=== PATIENT | male | born 1970 | race Caucasian/White ===

== ENCOUNTER 2023-08-23 07:00 | Day surgery (SDC) | payer OTHER, SELFPAY ==
[2023-08-23 07:16] VITALS: BMI 33.5
--- NOTE | 2023-08-23 09:37 | ITS.CL.CARDI ---
Novelty Chain Maker - Cardioversion
Cardioversion
Procedure Report:
Procedure: GISEL-guided electrical cardioversion
Pre-operative diagnosis: Persistent atrial fibrillation
Post-operative diagnosis: Persistent atrial fibrillation status post DC cardioversion to sinus rhythm
Anesthesia: MAC
Attending Physician: Guy Finn MD
Procedure Description: The patient was brought to the electrophysiology laboratory in the fasting state. Informed consent was obtained from the patient prior to the start of the procedure. Adherence to anticoagulation was confirmed. Electrodes were
placed on the patient and connected to an external defibrillator. Monitoring of blood pressure, ECG tracings, and pulse oximetry was initiated. The pads were applied to the patient in the anterior and posterior positions. The patient was sedated by
the anesthesiologist. A GISEL (reported separately) was performed prior to the cardioversion. No left atrial or left atrial appendage thrombus was seen. After the GISEL probe was removed, a 200 joule and subsequent 360 joule biphasic synchronized shock
was delivered to the patient under MAC anesthesia. Sinus rhythm was successfully restored. The patient recovered uneventfully from MAC anesthesia. There were no immediate post-procedure complications. The patient left the lab in good condition. The
attending physician was present throughout the entire procedure.
Impression: Successful GISEL-guided direct current cardioversion with roman catholic of sinus rhythm after a 200 joule and subsequent 360 joule biphasic synchronized shock.
== END 2023-08-23 09:55 | disposition home or self-care (01) ==
LOC: CATH 07:00
PROVIDERS: ATTENDING PHYSICIAN Nuclear Medicine Nuclear Cardiology; FAMILY PHYSICIAN Family Medicine; OTHER PHYSICIAN Internal Medicine Cardiovascular Disease
DX: I48.19 Other persistent atrial fibrillation (principal); I08.1 Rheumatic disorders of both mitral and tricuspid valves; Z79.01 Long term (current) use of anticoagulants
CPT/HCPCS: 93312; 93320; 93325; 92960; 93005

== ENCOUNTER 2023-10-09 06:07 | Day surgery (SDC) | payer OTHER, SELFPAY ==
--- NOTE | 2023-09-25 08:23 | HPS.HSE ---
Family Physician
-
Family Physician: NOT KNOW UNKNOWN - PT DOES
Chief Complaint
-
Paroxysmal atrial fibrillation.
History of Present Illness
The patient is a 52 year old male presenting today for paroxysmal atrial fibrillation. The patient reports a wide variety of symptoms associated with his arrhythmia, which include marked fatigue and dyspnea on exertion. He previously underwent
multiple GISEL-guided cardioversions and pulmonary vein isolation in June 2022 for this diagnosis. He is currently rate controlled without the use of pharmacological therapy. He has been complaint with Eliquis for oral anticoagulation. He notes
that his current symptoms are greatly interfering with his activities of daily living and are overall impacting his quality of life. He is interested in pursuing pulmonary vein isolation again for further arrhythmia management. He denies any current
complaints today such as chest pain and shortness of breath at rest, palpitations, nausea, vomiting, diarrhea, lightheadedness, dizziness, cough, sore throat, or fever.
Medical History
Past Medical History
Past Medical History: Reports Other
Additional Past Medical History:
1. Paroxysmal atrial fibrillation, status post GISEL-guided cardioversion x3 and pulmonary vein isolation 06/2022; oral anticoagulation with Eliquis.
2. First degree AV block.
3. Right lower lobe pulmonary nodule on chest CT 06/2022.
4. Hepatic steatosis.
5. Remote nephrolithiasis.
6. Degenerative disc disease.
7. Mild hyponatremia.
8. Obesity, BMI 33.9.
Past Surgical History: Reports Other
Additional Past Surgical History:
1. Pulmonary vein isolation.
2. GISEL-guided cardioversion x3.
3. [place] teeth extraction.
Social History
Tobacco: Non-smoker
Alcohol: Other (He reports, on average, drinking 5-6 beers twice a week.)
Personal:
Living: With Family (The patient lives in a three-story home with his and three children.)
Family History
Family History: Not pertinent
Allergies / Home Medications
Allergy/Medication List:
Home medications:
1. Zyrtec 10 mg p.o. daily.
2. Eliquis 5 mg p.o. twice a day.
3. Multivitamin 1 tablet p.o. daily.
Allergies: Seasonal. No known drug allergies.
Review of Systems
-
A 12 point ROS was completed and negative except as noted: Yes
Physical Exam
Vital Signs
Blood pressure 127/77. Heart rate 77. Respirations 18. Pulse ox 97% on room air.
Height 5 feet, 11 inches. Weight 110.2 kg. BMI 33.9.
Physical Exam
General: Well Developed, Well Nourished and No Apparent Distress
HEENT: NormoCephalic, Moist mucous membranes, Atraumatic and PERRLA
Respiratory: Clear
Cardiac: Regular Rhythm
GI: Soft, Non Tender and Non Distended
Musculoskeletal: Normal Gait & Station
Skin: Warm and Dry
Neuro: AO x 3 and Nonfocal/grossly intact
Laboratory Results
-
DIAGNOSTIC STUDIES as of 09/25/2023: White blood cell count 6.8. Hemoglobin 14.5. Platelet count 237,000. PT 13.7. INR 1.07. Sodium 134. Potassium 4.1. BUN 12. Creatinine 0.9. Glucose 116. Calcium 9.8. Magnesium 1.8. AST 28. ALT 22. Albumin 4.3.
Blood type O negative.
EKG 09/25/2023: Sinus rhythm with first degree AV block.
Transesophageal echocardiogram 08/23/2023: Normal left ventricular size, wall thickness, and systolic function. No regional wall motion abnormalities are seen. The ejection fraction is estimated at 55-60%. Normal right ventricular size and function.
Dilated left atrium. No thrombus detected in the left atrial appendage. Peak velocities within the left atrial appendage are normal.
Stress echocardiogram 10/27/2021: The patient was exercised by the Jayy protocol. The exercise tolerance was below average. The patient's target heart rate was achieved (88%). Parasternal long axis and short axis views are mildly limited in quality
in both resting and stress images with limited interpretation of inferolateral wall and mid lateral wall. Resting images revealed normal left ventricular size and function. No obvious regional wall motion abnormalities were seen. The estimated
ejection fraction is 55-60%. On the immediate post exercise images, there is normal left ventricular augmentation and wall thickening. No obvious regional wall motion abnormalities are seen. No evidence of myocardial ischemia. Estimated ejection
fraction is 65-70%.
Impression/Plan
-
IMPRESSION/PLAN:
1. Paroxysmal atrial fibrillation: The patient is in need of pulmonary vein isolation with Dr. Mert Orr on 10/09/2023. The benefits and risks of the procedure have been explained to the patient. The patient understands these risks and
wishes to proceed. He will not be required to undergo a pre-procedural transesophageal echocardiogram as he has been compliant with his home oral anticoagulation. He is aware to hold his Eliquis the night before and morning of his procedure unless
he is otherwise specified by his surgeon. He will take no other medications the morning of his procedure.
[2023-09-25 10:04] VITALS: BMI 33.9
[2023-09-25 10:36] LABS: % Eosinophils 2.1 % (0-6); % Immature Granulocytes 0.3 % (0-0.5); % Monocytes 7.2 % (1.7-9.3); % Neutrophils 61.4 % (42.2-75.2); Absolute Basophils 0.1 10^3/uL (0-0.2); Absolute Eosinophils 0.1 10^3/uL (0-0.7); Absolute Lymphocytes 1.9 10^3/uL (1.2-3.4); Absolute Monocytes 0.5 10^3/uL (0.1-0.6); Absolute Neutrophils 4.2 10^3/uL (1.4-6.5); Hemoglobin 14.5 g/dL (13.0-18.0); Mean Corp Hgb Conc. 34.5 g/dL (33.0-37.0); Mean Corpuscular Hgb 31.2 pg (27.0-31.0); Mean Corpuscular Volume 90.3 fL (80.0-94.0); Mean Platelet Volume 10.6 fL (7.4-10.4); Nucleated Red Blood Cells % 0 % (-); Platelet Count 237 10^3/uL (130-400); Red Blood Cell Count 4.65 10^6/uL (4.70-6.10); Red Cell Dist. Width 12.6 % (11.5-14.5); White Blood Cell Count 6.8 10^3/uL (4.8-10.8)
[2023-09-25 10:39] LABS: INR 1.07; PT 13.7 Sec (11.4-14.6)
[2023-09-25 13:02] LABS: ALT (SGPT) 22 U/L (0-50); AST (SGOT) 28 U/L (17-59); Albumin 4.3 g/dl (3.5-5.0); Alkaline Phosphatase 78 U/L (38-126); Blood Urea Nitrogen 12 mg/dl (9-20); Calcium 9.8 mg/dl (8.4-10.2); Carbon Dioxide 25 mmol/L (22-30); Chloride 102 mmol/L (98-107); Estimated Creatinine Clearance 123 ml/min; Glucose 116 mg/dl (70-99); Magnesium 1.8 mg/dl (1.6-2.3); Potassium 4.1 mmol/L (3.5-5.1); Sodium 134 mmol/L (135-145); Total Bilirubin 0.7 mg/dl (0.2-1.3); Total Protein 7.1 g/dl (6.3-8.2); eGFR > 60.00
[2023-10-09] VITALS (11 sets, daily range): BP systolic 109–148; BP diastolic 62–85; BMI 33.5
[2023-10-09 08:56] LABS: ACT-LR - POC 282 Seconds (116-155)
[2023-10-09 09:17] LABS: ACT-LR - POC 360 Seconds (116-155)
--- NOTE | 2023-10-09 10:17 | ITS.CL.ABL ---
Size Changer - Ablation
Ablation
Procedure Report:
ELECTROPHYSIOLOGIC STUDY AND POSSIBLE ABLATION
DATE: October 09, 2023
Primary Care: Dr Eric Lockhart
Primary Slate Worker: Dr Gino Kim
Telegraph Operator (present/active through the entirety of the procedure): Mert Orr M.D.
INDICATION:
Symptomatic Atrial Fibrillation.
HISTORY: See H and P.
Symptomatic persistent AF, poorly controlled with attempted medical therapy. Initially planned for PVI in October 2021, but he cancelled that ablation and ultimately underwent PVI in June 2022. He required cardioversion in October 2022 for recurrence of
atrial fibrillation and again in August 2023 for recurrence of atrial fibrillation. Previously with persistence of atrial fibrillation he developed an associated cardiomyopathy which is subsequently improved/normalized. Most recently
transesophageal echo August 23, 2023 finds LVEF of 55 to 60%.
HAS-BLED: 0
CHADSVASc: 0
PRESENTING RHYTHM: SR
ANTICOAGULATION: Eliquis
'TIME-OUT': called and confirmed.
SEDATION/ANESTHESIA: provided via the anesthesia department using general anesthesia.
PROCEDURE:
Ultrasound Guidance performed by ar was utilized for femoral venous Vascular Access b/l.
A decapolar CS catheter was placed within the CS for mapping and pacing.
The intracardiac ultrasound catheter was positioned in the RA for continuous intracardiac ultrasound imaging.
Heparin bolus and infusion to target ACT at 300 -350 seconds was administered. Transseptal puncture was performed. This entailed advancing a sheath with dilator into the superior vena cava and withdrawing both (monitoring intracardiac ultrasound,
fluoroscopy and tip pressure) with the tip oriented toward the atrial septum. The fossa ovalis was engaged (indicated by sudden displacement of the sheath tip as well as tenting of the fossa seen on intracardiac ultrasound).
Left atrial catheter position was confirmed by echocardiographic imaging, pressure monitoring and fluoroscopy. The sheath was advanced over the dilator and positioned in the left atrium.
The multipolar mapping catheter (Z[employer] Ahead) was initially positioned through the transseptal sheath for high density mapping. A geometric and voltage map was created. This as well as pacing maneuvers demonstrated full electrical isolation of the
left superior pulmonary vein, there is reconnection at the floor of the left inferior pulmonary vein, full isolation of the right superior and right inferior pulmonary veins but lack of wide area circumferential ablation around both pulmonary vein
sets.
Programmed electrical stimulation prior to any energy delivery was able to induce short duration left atrial tachycardia lasting several seconds but no atrial fibrillation.
Programmed electrical stimulation also demonstrated the presence of dual AV yasmeen physiology without induction of SVT.
The [employer] Pulse Select PFA catheter and system was used for cardiac ablation. Catheter positioning was guided and confirmed using both I.C.E. and fluoroscopy.
Pulsed electric field energy was delivered to re-isolate the left inferior pulmonary vein and once electrical isolation at the ostium was confirmed, additional ablation set was performed to accomplish wide area circumferential ablation.
After energy delivery programmed electrical stimulation was repeated including burst atrial pacing as well as delivery of atrial decremental extrastimuli down to atrial ERP and no arrhythmias, sustained or unsustained, could be induced. No atrial
fibrillation could be induced.
I.C.E. :
Pre-Ablation Post-Ablation
LVEF: 55% 55%
WMA: None none
Pericardial effusion: None none
COMPLICATIONS:
None
SUMMARY:
- Mapping and ablation to re-isolate the PVs
- Additional AF ablation set after PVI.
- 3-D Electroanatomical Mapping
- Intracardiac Ultrasound
Post ablation, I discussed today's findings and results with the patient's .
RECOMMENDATIONS:
- Observe in monitored bed.
- Maintain oral anticoagulation.
- Office visit with Dr Kim in 3 months.
- Continue cardiovascular care with Dr Kim
Copy to:
Dr Eric Lockhart
Dr Gino Kim
--- NOTE | 2023-10-09 14:31 | W.PN.UPDATE ---
Update Note
Progress Note Update
Pt seen post PFA. Bilat groin sites stable- left with vascade failure and subsequent FOE placed, right with vascade closure. No ht/bleeding, non tender. OOB ambulating, urinating without difficulty. Resume Eliquis today. Post EKG SB/NSR w/1st deg
AVB, no acute changes. Followup at [facility] arranged. Home today if groin sites/tele remain stable.
== END 2023-10-09 14:26 | disposition home or self-care (01) ==
LOC: CATH 06:07
PROVIDERS: ATTENDING PHYSICIAN Internal Medicine Cardiovascular Disease; FAMILY PHYSICIAN Family Medicine; OTHER PHYSICIAN Internal Medicine Cardiovascular Disease
DX: I48.19 Other persistent atrial fibrillation (principal); R53.83 Other fatigue; R06.09 Other forms of dyspnea; I44.0 Atrioventricular block, first degree; K76.0 Fatty (change of) liver, not elsewhere classified; Z87.442 Personal history of urinary calculi; E66.9 Obesity, unspecified; Z68.33 Body mass index [BMI] 33.0-33.9, adult; E87.1 Hypo-osmolality and hyponatremia; R91.1 Solitary pulmonary nodule; Z79.01 Long term (current) use of anticoagulants
CPT/HCPCS: C1732; C1894; C1730; C1892; C1759; C1769; 36415; 76937; 80053; 83735; 85025; 85347; 85610; 86850; 86900; 86901; 93005; 93656; 93657; C1760

== ENCOUNTER → 2024-11-05 16:15 | Outpatient (REF) | payer OTHER, SELFPAY | LOC: DHSLP 16:15 | PROVIDERS: ATTENDING PHYSICIAN Nurse Practitioner; FAMILY PHYSICIAN Family Medicine | DX: G47.33 Obstructive sleep apnea (adult) (pediatric) (principal) | CPT/HCPCS: 95806 ==

== ENCOUNTER 2024-11-11 08:05 | Day surgery (SDC) | payer OTHER, SELFPAY ==
[2024-11-07 10:53] LABS: % Basophils 1.3 % (0-2); % Eosinophils 2.2 % (0-6); % Immature Granulocytes 0.5 % (0-0.5); % Lymphocytes 29.3 % (20.5-51.1); % Monocytes 7.9 % (1.7-9.3); % Neutrophils 58.8 % (42.2-75.2); Absolute Basophils 0.1 10^3/uL (0-0.2); Absolute Eosinophils 0.2 10^3/uL (0-0.7); Absolute Immature Granulocytes 0.1 10^3/uL (0-0.05); Absolute Lymphocytes 2.7 10^3/uL (1.2-3.4); Absolute Monocytes 0.7 10^3/uL (0.1-0.6); Absolute Neutrophils 5.3 10^3/uL (1.4-6.5); Hematocrit 44.1 % (39.0-52.0); Hemoglobin 15.1 g/dL (13.0-18.0); Mean Corp Hgb Conc. 34.2 g/dL (33.0-37.0); Mean Corpuscular Hgb 30.9 pg (27.0-31.0); Mean Corpuscular Volume 90.2 fL (80.0-94.0); Mean Platelet Volume 11.3 fL (7.4-10.4); Nucleated Red Blood Cells % 0 % (-); Platelet Count 263 10^3/uL (130-400); Red Blood Cell Count 4.89 10^6/uL (4.70-6.10); Red Cell Dist. Width 12.2 % (11.5-14.5); White Blood Cell Count 9.1 10^3/uL (4.8-10.8)
[2024-11-07 11:09] LABS: INR 1.01; PT 13.8 Sec (11.4-14.6)
[2024-11-07 11:35] LABS: ALT (SGPT) 17 U/L (0-50); AST (SGOT) 20 U/L (17-59); Albumin 4.7 g/dl (3.5-5.0); Alkaline Phosphatase 77 U/L (38-126); Blood Urea Nitrogen 14 mg/dl (9-20); Calcium 9.7 mg/dl (8.4-10.2); Carbon Dioxide 24 mmol/L (22-30); Chloride 107 mmol/L (98-107); Glucose 128 mg/dl (70-99); Magnesium 1.9 mg/dl (1.6-2.3); Potassium 4.5 mmol/L (3.5-5.1); Sodium 141 mmol/L (135-145); Total Bilirubin 0.3 mg/dl (0.2-1.3); Total Protein 7.5 g/dl (6.3-8.2); eGFR > 60.00
[2024-11-07 13:46] VITALS: BMI 33.3
[2024-11-11] VITALS (13 sets, daily range): BP systolic 101–131; BP diastolic 74–91; BMI 32.8
--- NOTE | 2024-11-11 07:46 | ITS.CL.ABL ---
Paper Stacker - Ablation
Ablation
Procedure Report:
ELECTROPHYSIOLOGIC STUDY AND POSSIBLE ABLATION
DATE: 11/11/24
Primary Care: Dr Eric Lockhart
Primary Sawdust Machine Operator: Dr Gino Kim
INDICATION:
Symptomatic Atrial Fibrillation.
Paroxysmal
HISTORY: See H and P.
Symptomatic AF, poorly controlled with attempted medical therapy
Recurrent and symptomatic despite PVI Jun 2022 (Cryo) and October 2023 ([employer] Pulse Select PFA)
HAS-BLED: 0
CHADSVASc: 0
PRESENTING RHYTHM: AF
HISTORY: See H and P.
Symptomatic AF, poorly controlled with attempted medical therapy.
ANTICOAGULATION: Apixaban 5 mg twice daily
'TIME-OUT': called and confirmed.
SEDATION/ANESTHESIA: provided via the anesthesia department using general anesthesia.
PROCEDURE:
Ultrasound Guidance with real-time visualization of needle insertion and vessel patency performed by me for femoral venous Vascular Access.
Under real-time US guidance, the needle was advanced with negative pressure into the vein. The needle was seen entering the vessel lumen with a good return of dark red flow, the syringe was removed, non-pulsatile, dark red blood low was noted and
the wire was passed without difficulty, then the needle was removed. US confirmed the wire was in the vein, not going into an artery,
Images were taken and saved for the patient's permanent record. Imaging findings typical femoral venous anatomy. Direct visualization of needle puncture into the femoral vein was observed and recorded.
A decapolar CS catheter was placed within the CS for mapping and pacing.
The intracardiac ultrasound catheter was positioned in the RA for continuous intracardiac ultrasound imaging.
Heparin bolus and infusion to target ACT at 300 -350 seconds was administered. Transseptal puncture was performed. This entailed advancing a sheath with dilator into the superior vena cava and withdrawing both (monitoring intracardiac ultrasound,
fluoroscopy and tip pressure) with the tip oriented toward the atrial septum. The fossa ovalis was engaged (indicated by sudden displacement of the sheath tip as well as tenting of the fossa seen on intracardiac ultrasound).
Transseptal puncture was performed. Left atrial catheter position was confirmed by echocardiographic imaging, pressure monitoring (LA mean pressure 18 mm Hg) and fluoroscopy. The sheath was advanced over the dilator and positioned in the left
atrium.
The [email or web address] multipolar mapping/ablation Sphere-9 catheter was positioned through the transseptal sheath for high density mapping.
Cardioversion at 200 J failed to restore sinus rhythm, cardioversion at 360 J resulted in sinus rhythm.
Geometry and voltage mapping was performed using the [employer] mapping system for three-dimensional electroanatomical mapping.
Catheter positioning was guided and confirmed using both I.C.E. and fluoroscopy.
Mapping demonstrates reconnection at the right superior pulmonary vein towards its anterior superior quadrant.
Ablation with pulsed electric field energy deliveries at this targeted area isolated pulmonary veins with both entrance and exit block at the right superior pulmonary vein.
The other 3 pulmonary veins were also mapped and found to exhibit both entrance and exit block.
Mapping was performed to evaluate for any extra PV contributors to atrial fibrillation.
Targets were identified with electroanatomical voltage mapping finding areas of low voltage and complex fractionated electrograms. These areas can be sites for the formation of rotors which can drive and maintain atrial fibrillation. These areas are
known to be significant contributors to initiation and perpetuation of atrial fibrillation.
Targets for additional PFA ablation included:
LA posterior wall
After ablation of the posterior wall mapping and pacing finds both entrance and exit block at the posterior wall, the areas of low voltage and complex fraction electrograms were eliminated with ablation.
Additionally, mapping finds areas of complex fractionated electrograms and patchy voltages along the ridge of tissue between the left atrial appendage and the left sided pulmonary veins along the ligament of Kilo.
This area of extra PV contributors to atrial fibrillation was also ablated using pulsed electric field energy.
Ablation of the ridge of tissue between the left atrial appendage and left sided pulmonary veins, the ligament of Kilo was completed
At the completion of ablation at the targeted extra PV sites, post ablation mapping finds that the targeted complex fractionated electrograms are eliminated rendering the sites no longer able to contribute to atrial fibrillation. Post ablation high
output pacing at the targeted sites demonstrate lack of capture / exit block.
At the end of ablation, there is entrance and exit block at each of the pulmonary vein ostia (LSPV, LIPV, RSPV, RIPV).
There is entrance and exit block at the posterior wall of the left atrium
Areas of EXTR PV targets (the ligament of Kilo) also demonstrate electrical isolation.
Programmed electrostimulation including burst atrial pacing as well as delivery of atrial decremental extrastimuli down to atrial ERP failed to induce any sustained arrhythmias until aggressive delivery of atrial decremental extrastimuli at 600/200
ms was able to induce atrial fibrillation which was cardioverted to sinus rhythm.
I.C.E. :
Pre-Ablation Post-Ablation
LVEF: 55 % 55 %
WMA: none none
Pericardial effusion: none none
COMPLICATIONS:
None
SUMMARY:
- Mapping and ablation to isolate the PVs resulting in electrical isolation of the pulmonary veins
- Additional AF ablation sets X 2 after PVI (LA posterior wall, ligament of Kilo) resulting in elimination of the targeted extra PV contributors to atrial fibrillation
Left atrial posterior wall
Ligament of Kilo line
- 3-D Electroanatomical Mapping
- Intracardiac Ultrasound
- Ultrasound guidance for vascular access
Post ablation, I discussed today's findings and results with the patient's , [place].
RECOMMENDATIONS:
- Observe in monitored bed.
- Maintain oral anticoagulation for minimum of 2 months post procedure.
- Office visit with me has been scheduled for February 27, 2025.
Copy to:
Dr Eric Lockhart
Dr Gino Kim
[2024-11-11 11:05] LABS: ACT-LR - POC 329 Seconds (116-155)
--- NOTE | 2024-11-11 13:15 | PTCARENOTE ---
Dr Orr at pt bedside speaking to pt.
--- NOTE | 2024-11-11 13:53 | W.PN.UPDATE ---
Update Note
Progress Note Update
Pt seen post PFA. Right groin with vascade closure, no ht/bleeding, oob ambulating, urinating without difficulty. Post EKG NSR w/1st deg AVB as before, no acute changes. Resume eliquis tonight at usual time. Followup with Dr. Orr as
scheduled. Home today if groin site/tele remain stable.
[2024-11-11 14:35] LABS: ACT-LR - POC 343 Seconds (116-155)
== END 2024-11-11 14:35 | disposition home or self-care (01) ==
LOC: CATH 08:05
PROVIDERS: ATTENDING PHYSICIAN Internal Medicine Cardiovascular Disease; FAMILY PHYSICIAN Family Medicine
DX: I48.0 Paroxysmal atrial fibrillation (principal); K76.0 Fatty (change of) liver, not elsewhere classified; R91.1 Solitary pulmonary nodule; Z79.01 Long term (current) use of anticoagulants
CPT/HCPCS: C1760; C1733; C1894; C1769; C1766; C1892; 36415; 80053; 83735; 85025; 85347; 85610; 86850; 86900; 86901; 93005; 93656; 93657; C1730

== ENCOUNTER → 2025-02-25 12:12 | Outpatient (REF) | payer OTHER, SELFPAY | LOC: EMG 12:12 | PROVIDERS: ATTENDING PHYSICIAN Orthopaedic Surgery; FAMILY PHYSICIAN Family Medicine | DX: R20.0 Anesthesia of skin (principal) | CPT/HCPCS: 95886; 95909 ==

== ENCOUNTER → 2025-03-10 17:45 | Outpatient (REF) | payer OTHER, SELFPAY | LOC: MRI 3T 17:45 | PROVIDERS: ATTENDING PHYSICIAN Orthopaedic Surgery; FAMILY PHYSICIAN Family Medicine | DX: M54.12 Radiculopathy, cervical region (principal) | CPT/HCPCS: 72141 ==

== ENCOUNTER 2025-04-16 06:24 | Day surgery (SDC) | payer OTHER, SELFPAY ==
[2025-04-02 10:49] LABS: Hematocrit 44.6 % (39.0-52.0); Hemoglobin 15.3 g/dL (13.0-18.0); Mean Corp Hgb Conc. 34.3 g/dL (33.0-37.0); Mean Corpuscular Volume 91.0 fL (80.0-94.0); Platelet Count 261 10^3/uL (130-400); Red Cell Dist. Width 12.4 % (11.5-14.5)
[2025-04-02 11:15] LABS: ALT (SGPT) 30 U/L (0-50); AST (SGOT) 28 U/L (17-59); Albumin 4.6 g/dl (3.5-5.0); Alkaline Phosphatase 65 U/L (38-126); Blood Urea Nitrogen 16 mg/dl (9-20); Calcium 9.7 mg/dl (8.4-10.2); Carbon Dioxide 29 mmol/L (22-30); Chloride 102 mmol/L (98-107); Glucose 106 mg/dl (70-99); Potassium 4.4 mmol/L (3.5-5.1); Sodium 135 mmol/L (135-145); Total Protein 7.8 g/dl (6.3-8.2); eGFR > 60.00
[2025-04-02 13:59] VITALS: BMI 29.3
[2025-04-09 09:52] VITALS: BMI 29.3
[2025-04-16] VITALS (18 sets, daily range): BP systolic 117–158; BP diastolic 82–99; PULSE 92; O2SAT 98; BMI 29.3
[2025-04-16] MEDS: CELEBREX 200 MG PO (08:44)
[2025-04-16] MEDS: TYLENOL 1000 MG PO ×2 (08:44→14:50)
[2025-04-16] MEDS: METHOCARBAMOL 1500 MG PO ×3 (08:44→22:17)
[2025-04-16] MEDS: LYRICA 150 MG PO (08:45)
[2025-04-16] MEDS: NORMOSOL-R/PLASMALYTE-A 1000 IV ×2 (08:48→14:34)
--- NOTE | 2025-04-16 09:39 | W.PN.UPDATE ---
Update Note
Progress Note Update
Cervical arthritis w/ myelopathy s/p C4-C6 ACDF w/ Dr Waldrop 04/16/25
DVT prophylaxis - b/l SCDs/TEDs
PAF s/p CV and recurrent ablations - monitor on tele
- No current OAC (previously on Eliquis but d/c per cardio) d/t CHADS-VASc 0
KYLE, no current device - monitor O2
- IS
- Add supplemental O2 HS
Prediabetes
[2025-04-16] MEDS: ULTRAM PO (14:52)
--- NOTE | 2025-04-16 17:00 | PTCARENOTE ---
pt admitted to 2100 from PACU. pt oriented to room and unit. AAOX3, pt denies pain. neurovascular check intact, pulses easily palpable in all extremities. pt with neck brace intact. dressing under brace CDI. pt OOB to chair with PT/OT. IVF infusing
per orders. telemetry- normal sinus rhythm heart rate 90s- occasional pvcs. pt updated on plan of care.
[2025-04-16] MEDS: TYLENOL PO (17:29)
[2025-04-16] MEDS: METHOCARBAMOL PO (17:29)
[2025-04-16] MEDS: ANCEF 5 IV (17:30)
[2025-04-16] MEDS: DECADRON 4 MG IV (20:22)
[2025-04-16] MEDS: LYRICA 75 MG PO (20:23)
[2025-04-16] MEDS: SENOKOT 17.2 MG PO (20:23)
[2025-04-16] MEDS: ULTRAM 50 MG PO (20:23)
[2025-04-16] MEDS: COLACE 100 MG PO (20:23)
[2025-04-16] MEDS: PEPCID 20 MG PO (22:17)
[2025-04-17] MEDS: NORMOSOL-R/PLASMALYTE-A 1000 IV (00:07)
[2025-04-17] MEDS: TYLENOL PO (00:13)
[2025-04-17] MEDS: ANCEF 5 IV (01:09)
[2025-04-17] MEDS: ULTRAM 50 MG PO ×2 (01:58→07:51)
[2025-04-17 03:00] VITALS: BP 127/78
[2025-04-17] MEDS: TYLENOL 1000 MG PO (06:16)
[2025-04-17 07:00] VITALS: BP 120/80
[2025-04-17 07:42] LABS: Hematocrit 44.1 % (39.0-52.0); Hemoglobin 14.6 g/dL (13.0-18.0)
[2025-04-17 07:47] LABS: Blood Urea Nitrogen 9 mg/dl (9-20); Calcium 9.5 mg/dl (8.4-10.2); Carbon Dioxide 25 mmol/L (22-30); Chloride 101 mmol/L (98-107); Estimated Creatinine Clearance > 125 ml/min; Glucose 179 mg/dl (70-99); Potassium 4.6 mmol/L (3.5-5.1); Sodium 135 mmol/L (135-145); eGFR > 60.00
[2025-04-17] MEDS: LYRICA 75 MG PO (07:51)
[2025-04-17] MEDS: COLACE 100 MG PO (07:51)
[2025-04-17] MEDS: SENOKOT 17.2 MG PO (07:51)
[2025-04-17] MEDS: METHOCARBAMOL 1500 MG PO (07:52)
[2025-04-17] MEDS: DECADRON 4 MG IV (07:56)
--- NOTE | 2025-04-17 08:12 | W.PN.SP ---
Today's Communication / Plan
-
s/p acdf
Doing well
PT
D/C
Subjective / Objective
Subjective Data
PT doing well
Denies weakness
Objective Data
Vital Signs
Temp Pulse Resp BP Pulse Ox
98.0 F 85 16 127/78 94
04/17/25 03:00 04/17/25 03:00 04/17/25 03:00 04/17/25 03:00 04/17/25 03:00
Intake and Output
04/16/25 04/17/25 04/18/25
06:59 06:59 06:59
Intake Total 1360 / 1360
Balance 1360 / 1360
Intake:
Oral fluids 960 / 960
IV fluids (Total) 400 / 400
Normosol 100 / 100
Other:
Number of approximated MODERATE 1
amounts of urine
Lab Data
04/17/25 06:34
04/17/25 06:34
Physical Exam
-
NO weakness
--- NOTE | 2025-04-17 08:30 | CM ---
Cm met with patient in room. Patient confirmed demographics. Patient lives independently with . Patient does not have a history of VN, SNF or DME. Patient is active with his PCP. Patient has medication coverage and confirmed Pharmacy.
PLAN: Home no needs
[2025-04-17 09:01] VITALS: BP 139/81
--- NOTE | 2025-04-17 09:04 | W.PN.ORTHO ---
Today's Communication / Plan
-
Await PT recs. Did well w/ OT today.
D/c today if remaining clinically stable.
Assessment
.
Distal Motor Intact: Yes
Dressing:
Clean, dry and intact.
Assessment:
Cervical arthritis w/ myelopathy s/p C4-C6 ACDF w/ Dr Waldrop 04/16/25
DVT prophylaxis - b/l SCDs/TEDs
PAF s/p CV and recurrent ablations - maintaining NSR on tele
- No current OAC (previously on Eliquis but d/c per cardio) d/t CHADS-VASc 0
KYLE, no current device - O2 stable on RA by POD 1
- IS
- Add supplemental O2 HS
Prediabetes
Did discuss pain mgmt with patient. Per his preference, he would like to be prescribed tapered Lyrica for the next 10 days and Tramadol q6hprn for moderate-severe post-op pain. Of note, no Oxycodone was needed during admission. I did advise he
call Dr. Waldrop's office should these pain meds not be effective at any point in time. The patient expressed understanding.
Plan
.
Surgery / Date: C4-C6 ACDF w/ Dr Waldrop 04/16/25
DVT Prophylaxis: Other (b/l SCDs/TEDS )
Activity:
Out of bed.
PT/OT
Discharge Plan: Home
Subjective
.
.:
Patient resting comfortably in bed this AM.
Neck pain minimal overnight. Pt very happy with his overall progress so far.
Denies any other new significant complaints.
AM labs stable.
Eager for potential d/c today.
Vital Signs and Labs
.
Vital Signs and Labs:
Lab Results
04/17/25 06:34
04/17/25 06:34
Temp Pulse Resp BP Pulse Ox
98.2 F 78 16 120/80 96
04/17/25 07:00 04/17/25 07:00 04/17/25 07:00 04/17/25 07:00 04/17/25 07:00
Physical Exam
-
HEENT: No pallor, cyanosis, or jaundice.
NECK: Supple. + Cervical collar.
RESPIRATORY: Lungs clear to auscultation.
CVS: S1, S2 normal. RRR.�
ABDOMEN: Soft, non-tender. No distension.
EXTREMITIES: Strength equal, no calf pain with palpation/dorsiflexion. Calves soft.
DOCTOR NATUROPATHIC: AOx3. No focal deficits. loss control representative grossly intact
--- NOTE | 2025-04-17 09:18 | W.DS.TRANS ---
DC Summary - Video Conference Specialist
-
Discharge Instructions:
Discharge Diagnosis/Procedures Cervical arthritis w/ myelopathy s/p C4-C6 ACDF
w/ Dr Benjie 04/16/25
Diet Regular
Additional Diets Adequate hydration and minimize opioids to
prevent low BP readings/dizziness.
Activity As tolerated
Additional Activity No heavy lifting >10 lbs.
Driving Restrictions Not until seen by your Dr
Bathing Restrictions OK to shower in 4 days
Instructions:
Stand-Alone Forms: [facility] Cervical D/C Inst.
Changes to Home Medications: Yes
Discharge Medications:
DC Medications w/original date entered in [employer]
Saccharomyces boulardii 250 mg capsule (Florastor) 250 mg PO BID #14 caps 04/17/25
acetaminophen 500 mg tablet (Tylenol Extra Strength) 1,000 mg (2 x 500 mg) PO Q6H #60 tabs 04/17/25
cephalexin 500 mg capsule 500 mg PO Q6H #20 caps 04/17/25
docusate sodium 100 mg capsule 100 mg PO BID #30 caps 04/17/25
famotidine 20 mg tablet 20 mg PO HS #30 tabs 04/17/25
magnesium hydroxide 400 mg/5 mL oral suspension (Milk of Magnesia) 30 ml PO HS PRN constipation #3,780 mL 04/17/25
ondansetron HCl 4 mg tablet 4 mg PO Q6H PRN nausea and vomiting #30 tabs 04/17/25
pregabalin 75 mg capsule 75 mg PO BID neuropathic pain #15 caps 04/17/25
sennosides 8.6 mg tablet (Shea-mt) 17.2 mg (2 x 8.6 mg) PO BID #30 tabs 04/17/25
tramadol 50 mg tablet 50 - 100 mg (1 - 2 x 50 mg) PO Q6H PRN moderate-severe pain #30 tabs 04/17/25
Home Medication Changes
Saccharomyces boulardii 250 mg capsule (Florastor) 250 mg PO BID #14 caps 04/17/25
acetaminophen 500 mg tablet (Tylenol Extra Strength) 1,000 mg (2 x 500 mg) PO Q6H #60 tabs 04/17/25
cephalexin 500 mg capsule 500 mg PO Q6H #20 caps 04/17/25
docusate sodium 100 mg capsule 100 mg PO BID #30 caps 04/17/25
famotidine 20 mg tablet 20 mg PO HS #30 tabs 04/17/25
magnesium hydroxide 400 mg/5 mL oral suspension (Milk of Magnesia) 30 ml PO HS PRN constipation #3,780 mL 04/17/25
ondansetron HCl 4 mg tablet 4 mg PO Q6H PRN nausea and vomiting #30 tabs 04/17/25
pregabalin 75 mg capsule 75 mg PO BID neuropathic pain #15 caps 04/17/25
sennosides 8.6 mg tablet (Shea-mt) 17.2 mg (2 x 8.6 mg) PO BID #30 tabs 04/17/25
tramadol 50 mg tablet 50 - 100 mg (1 - 2 x 50 mg) PO Q6H PRN moderate-severe pain #30 tabs 04/17/25
Pending Results: Yes
[2025-04-17 09:25] VITALS: BP 167/93; PULSE 73; O2SAT 98
== END 2025-04-17 10:06 | disposition home or self-care (01) ==
LOC: SDS 06:24
PROVIDERS: Physician Assistant Medical; ATTENDING PHYSICIAN Orthopaedic Surgery Orthopaedic Surgery of the Spine; FAMILY PHYSICIAN Family Medicine; OTHER PHYSICIAN Internal Medicine Cardiovascular Disease
DX: M47.12 Other spondylosis with myelopathy, cervical region (principal); M48.02 Spinal stenosis, cervical region
CPT/HCPCS: 22551; 22552; 36415; 72020; 80048; 80053; 85014; 85018; 85027; 87070; 97116; 97162; 97166; 97535; C1713